=== PATIENT | female | born 1965 | race Caucasian/White ===

== ENCOUNTER 2022-12-14 11:22 | Outpatient (CLI) | payer OTHER, SELFPAY ==
--- NOTE | ~2022-12-14 | XR_ITS ---
Clinical Indication: Rheumatoid arthritis PA and lateral views of the chest: Comparison: 02/11/2019 Findings: Questionable minimal interstitial prominence the lungs. Stable calcified left upper lobe gr anuloma.. Cardiomediastinal silhouette is within normal limits. Bones and soft tissues are unremarka ble. Impression: Questionable minimal interstitial prominence. Correlate for minimal interstitial edema or other inter stitial disease. Reviewed, dictated and finalized at location . Impression: Questionable minimal interstitial prominence. Correlate for minimal interstitia l edema or other interstitial disease.
[2022-12-14 18:32] LABS: Hematocrit 36.4 % (37.0-47.0); Hemoglobin 11.8 g/dL (12.0-15.0); Mean Corpuscular HGB Conc 32.4 g/dl (32-36); Mean Corpuscular Hemoglobin 31.9 pg (26-34); Mean Corpuscular Volume 98.4 fl (80-100); Mean Platelet Volume 9.8 fl (7.4-10.4); Platelet Count Result 526 k/mm3 (150-375); Red Cell Distribution Width 13.2 % (11.5-14.5); White Blood Count 10.5 K/mm3 (4.5-10.0)
[2022-12-14 19:06] LABS: Iron 50 ug/dL (37-170)
[2022-12-14 19:15] LABS: Percent Iron Saturation 18 % (20-50)
[2022-12-14 19:29] LABS: Creatinine Urine 58.1 mg/dL
[2022-12-14 19:31] LABS: Alanine Aminotransferase 13 U/L (6-35); Albumin Level 4.1 g/dL (3.5-5.1); Alkaline Phosphatase 108 U/L (38-126); Anion Gap 11 mmol/L (8-16); Aspartate Amino Transferase 70 U/L (14-36); Bilirubin,Total 0.3 mg/dL (0.2-1.3); Blood Urea Nitrogen 13 mg/dL (7-17); CRP 1.6 mg/dL (<1.0); Calcium 9.8 mg/dL (8.4-10.2); Carbon Dioxide 17 mmol/L (22-30); Chloride 112 mmol/L (98-107); Cholesterol 201 mg/dL (0-200); Erythrocyte Sedimentation Rate 67 mm/hr (0-20); Estimated Glomerular Filt Rate 51; Glucose 219 mg/dL (65-110); HDL Direct 45 mg/dL; Sodium 140 mmol/L (137-145); Triglycerides 181 mg/dL (<150)
[2022-12-14 19:37] LABS: MALB Creatinine Ratio 11.4 mg/g (0-30); Microalbumin Urine Random 6.6 mg/L (0-16.7)
[2022-12-14 19:40] LABS: LDL Cholesterol Direct 93 mg/dL
[2022-12-14 20:20] LABS: Hemoglobin A1C 8.1 % (<5.7)
[2022-12-17 14:24] LABS: ANA Cascade Screen Negative (Negative)
== END 2022-12-14 11:23 | disposition home or self-care (01) ==
LOC: ANHBWCLAB 11:23
PROVIDERS: PCP Nurse Practitioner Adult Health; Visit Provider Nurse Practitioner Adult Health
DX: M06.9 Rheumatoid arthritis, unspecified (principal); E11.9 Type 2 diabetes mellitus without complications; Z13.29 Encounter for screening for other suspected endocrine disorder; R91.8 Other nonspecific abnormal finding of lung field
CPT/HCPCS: 36415; 71046; 80053; 80061; 82043; 82728; 83036; 83540; 83550; 84443; 85027; 85652; 86038; 86140

== ENCOUNTER 2022-12-26 17:19 | Outpatient (CLI) | payer OTHER, SELFPAY ==
--- NOTE | ~2022-12-26 | XR_ITS ---
Left foot Technique: AP, oblique, and lateral views were obtained. Clinical History: Pain Findings: No acute fracture or dislocation is seen. Osseous alignment is anatomic. Joint spaces are p reserved without erosive or degenerative change. Questionable minimal erosions at the fifth metatarsa l head. There is prominent soft tissue swelling at the fifth metatarsophalangeal joint region. Impression: Prominent soft tissue swelling the fifth metatarsophalangeal joint region. Questionable minimal tiny erosion at the fifth metatarsal head. Consider bunionette or possibly gouty arthritis. Reviewed, dictated and finalized at location M. Impression: Prominent soft tissue swelling the fifth metatarsophalangeal joint region. Ques tionable minimal tiny erosion at the fifth metatarsal head. Consider bunionette or possibly gouty arthritis.
== END 2022-12-26 17:20 | disposition home or self-care (01) ==
LOC: ANHLAB 17:20
PROVIDERS: PCP Nurse Practitioner Adult Health; Visit Provider Nurse Practitioner Adult Health
DX: M79.672 Pain in left foot (principal); M79.89 Other specified soft tissue disorders
CPT/HCPCS: 73630

== ENCOUNTER 2023-01-11 11:47 | Outpatient (CLI) | payer OTHER, SELFPAY ==
--- NOTE | ~2023-01-11 | XR_ITS ---
XR shoulder RT min 2V 01/11/2023 12:03 Indication: Right shoulder pain after recent fall Procedure: 4 views right shoulder Comparison: No prior studies for comparison. Findings: There is mild polyarticular osteoarthritis of the right acromioclavicular and glenohumeral joints. There is healed right clavicular fracture. Osteopenia. Surrounding osseous structures are unr emarkable. No soft tissue abnormalities. Impression: 1: Mild polyarticular osteoarthritis of the right shoulder. Reviewed, dictated and finalized at location B. Impression: 1: Mild polyarticular osteoarthritis of the right shoulder.
--- NOTE | ~2023-01-11 | XR_ITS ---
EXAMINATION:XR_[id number]_CR DATE: 01/11/2023 12:03 INDICATION: Neck pain TECHNIQUE: AP, lateral, lateral swimmers and odontoid views of the cervical spine are provided. COMPARISON: None FINDINGS: Alignment is normal. The odontoid process is intact. No fracture is identified. Vertebral b ailyn heights and disk spaces are normal. Prevertebral soft tissues are normal. There is mild facet paddy nt osteoarthritis. IMPRESSION: 1. Mild cervical spondylosis without acute findings. Reviewed, dictated and finalized at location F.
== END 2023-01-11 11:48 | disposition home or self-care (01) ==
PROVIDERS: PCP Family Medicine; Visit Provider Nurse Practitioner Adult Health
DX: M47.892 Other spondylosis, cervical region (principal); M19.011 Primary osteoarthritis, right shoulder
CPT/HCPCS: 72040; 73030

== ENCOUNTER 2023-03-21 14:28 | Outpatient (CLI) | payer OTHER, SELFPAY ==
--- NOTE | ~2023-03-21 | XR_ITS ---
Right Forearm AP and lateral views of the right forearm were performed. Clinical History: Swelling, mass Findings: No acute fracture or dislocation is seen. Osseous alignment in anatomic. Joint spaces are preserved. Soft tissues are unremarkable. Impression: Unremarkable exam. Reviewed, dictated and finalized at location M. LLURGICAL INSPECTOR Impression: Unremarkable exam.
--- NOTE | ~2023-03-21 | XR_ITS ---
Left elbow Technique: AP, oblique, and lateral views were obtained. Clinical History: Rheumatoid arthritis Findings: No acute fracture or dislocation is seen. Osseous alignment is anatomic. Joint spaces are p reserved. Probable small joint effusion present. Impression: No osseous abnormality evident. Probable small joint effusion, nonspecific in the absence of trauma. Reviewed, dictated and finalized at [facility]. TRIC METER TESTER Impression: No osseous abnormality evident. Probable small joint effusion, nonspecific in the absence of trauma.
--- NOTE | ~2023-03-21 | XR_ITS ---
XR forearm LT 2V 03/21/2023 15:27 Indication: Rheumatoid arthritis Procedure: 2 views left forearm Comparison: No prior studies for comparison. Findings: Osteopenia. There is anatomic alignment. There is older ulnar styloid avulsion fracture. Th ere is moderate polyarticular osteoarthritis of the carpal bones. No acute fracture or traumatic william lignment. No erosive changes. Impression: 1: Moderate polyarticular osteoarthritis of the left wrist. Reviewed, dictated and finalized at location B. WORKER SUPERVISOR Impression: 1: Moderate polyarticular osteoarthritis of the left wrist.
--- NOTE | ~2023-03-21 | XR_ITS ---
AP and lateral views of the bilateral hips Clinical history: Arthritis Findings: No acute fracture or dislocation is seen. Osseous alignment is anatomic. Bilateral hip and SI joint spaces are preserved. Soft tissues are unremarkable. Impression: No significant abnormality is seen. Reviewed, dictated and finalized at [facility]. HEMICAL ENGINEER Impression: No significant abnormality is seen.
--- NOTE | ~2023-03-21 | XR_ITS ---
Right foot Technique: AP and lateral weightbearing views were obtained. Clinical History: Rheumatoid arthritis Findings: No acute fracture or dislocation is seen. Suspected erosions at the third, fourth, and fift h metatarsal heads.. Joint spaces are preserved without erosive or degenerative change. There is soft tissue swelling about the fifth metatarsal head. Impression: Suspected erosions at the third, fourth, and fifth metatarsal heads, with overlying soft tissue swell ing, particularly at the fifth metatarsal head region. Findings suggest inflammatory arthropathy. Reviewed, dictated and finalized at location M. R TUBE MACHINE OPERATOR Impression: Suspected erosions at the third, fourth, and fifth metatarsal heads, with overl timothy soft tissue swelling, particularly at the fifth metatarsal head region. Fi ndings suggest inflammatory arthropathy.
--- NOTE | ~2023-03-21 | XR_ITS ---
Lumbosacral Spine: AP and lateral views Clinical History: Arthritis Findings: The normal lordotic curve is maintained. The vertebral bodies and posterior elements are i ntact. The intervertebral disc spaces are preserved. Mild facet arthropathy present. The sacroiliac joints are normally outlined. Impression: Mild facet arthropathy. Reviewed, dictated and finalized at location . LE PARAMEDICAL EXAMINER Impression: Mild facet arthropathy.
--- NOTE | ~2023-03-21 | XR_ITS ---
Left foot Technique: AP and lateral weightbearing views were obtained. Clinical History: Rheumatoid arthritis Findings: No acute fracture or dislocation is seen. Probable erosions at the third, fourth, fifth met atarsal heads, with soft tissue swelling about the fifth metatarsal head. Joint spaces are preserved. Impression: Probable erosions at the third, fourth, and fifth metatarsal heads, with soft tissue swelling at the fifth metatarsal head region. Findings are compatible with inflammatory arthropathy. Reviewed, dictated and finalized at location . CTOR OF SECURITIES AND REAL ESTATE Impression: Probable erosions at the third, fourth, and fifth metatarsal heads, with soft t issue swelling at the fifth metatarsal head region. Findings are compatible wit h inflammatory arthropathy.
--- NOTE | ~2023-03-21 | XR_ITS ---
Right elbow Technique: AP, oblique, and lateral views were obtained. Clinical History: Rheumatoid arthritis, swelling Findings: No acute fracture or dislocation is seen. Osseous alignment is anatomic. Joint spaces are p reserved. There is no displacement of the fat pads, and soft tissues are unremarkable. Impression: Unremarkable radiographs. Reviewed, dictated and finalized at [facility]. REPAIRER Impression: Unremarkable radiographs.
--- NOTE | ~2023-03-21 | XR_ITS ---
XR hand BI arthritis min 3V 03/21/2023 15:27 Indication: Rheumatoid arthritis. Procedure: 4 views each hand Comparison: No prior studies for comparison. Findings: There is polyarticular osteoarthritis of the wrist and hands primarily involving the carpal phalangeal joints of both hands and to a lesser degree the interphalangeal joints. There is moderate osteoarthritis of the right triscaphe and to a lesser degree carpal metacarpal joint as well as the left triscaphe joints. Osteopenia. There are erosive changes involving the margin of the left second and third metacarpal heads with associated soft tissue swelling. There are small marginal erosions of the left second and third middle phalanges proximally. There is marginal erosion along the right sec ond, fourth and fifth metacarpal heads as well as at multiple interphalangeal joints. Impression: 1: Polyarticular erosions and advanced polyarticular degenerative change, compatible with known rheum atoid arthritis. 2: Osteopenia. Reviewed, dictated and finalized at location B. ETING PROJECT SPECIALIST Impression: 1: Polyarticular erosions and advanced polyarticular degenerative change, tania tible with known rheumatoid arthritis. 2: Osteopenia.
[2023-03-21 15:11] LABS: Hematocrit 35.6 % (37.0-47.0); Hemoglobin 11.2 g/dL (12.0-15.0); Mean Corpuscular HGB Conc 31.5 g/dl (32-36); Mean Corpuscular Hemoglobin 29.2 pg (26-34); Platelet Count Result 549 k/mm3 (150-375); Red Blood Count 3.83 M/mm3 (4.2-5.4); Red Cell Distribution Width 14.2 % (11.5-14.5); White Blood Count 11.3 K/mm3 (4.5-10.0)
[2023-03-21 15:33] LABS: Appearance Urine Clear (Clear); Bacteria Urine None Seen /hpf; Bilirubin Urine Negative (Negative); Blood Urine Negative (Negative); Color Urine Yellow (Yellow); Glucose Urine UA Negative (Negative); Ketones Urine Negative (Negative); Leukocyte Esterase Ur Negative LEU/UL (Negative); Need Manual Microscopic Reviewed; Nitrate Urine Negative (Negative); Non Pathogenic Casts 0-2; Protein Urine 1+ mg/dL (Negative); RBC Urine 21-50 /hpf (0-2); Specific Grav Ur 1.014 (1.001-1.035); Squamous Epithelial Cell Urine Occasional /hpf (Few); Urobilinogen Urine 0.2 mg/dL (<2.0); WBC Urine 0-5 /hpf; pH Urine 6.5 (5.0-9.0)
[2023-03-21 15:34] LABS: Add Urine Microscopic? YES
[2023-03-21 15:38] LABS: Erythrocyte Sedimentation Rate 75 mm/hr (0-20)
[2023-03-21 16:09] LABS: Alanine Aminotransferase 14 U/L (6-35); Albumin Level 4.2 g/dL (3.5-5.1); Alkaline Phosphatase 122 U/L (38-126); Anion Gap 12 mmol/L (8-16); Aspartate Amino Transferase 20 U/L (14-36); Bilirubin,Total 0.3 mg/dL (0.2-1.3); Blood Urea Nitrogen 12 mg/dL (7-17); Calcium 9.5 mg/dL (8.4-10.2); Carbon Dioxide 16 mmol/L (22-30); Chloride 109 mmol/L (98-107); Estimated Glomerular Filt Rate 51; Glucose 167 mg/dL (65-110); Sodium 137 mmol/L (137-145); Uric Acid 3.6 mg/dL (2.5-7.5)
[2023-03-21 16:16] LABS: Complement C3 70 mg/dL (88-165)
[2023-03-21 16:23] LABS: Hepatitis B Surface Anti Res Negative; Hepatitis C Virus Antibody Negative (Negative)
[2023-03-21 18:15] LABS: Hepatitis B Surface Antigen Negative (Negative)
[2023-03-21 23:10] LABS: Rheumatoid Factor > 120.0 IU/ML (<12)
[2023-03-25 14:13] LABS: T SPOT NEG CONTROL Passed; T SPOT POS CONTROL Passed
[2023-03-25 14:14] LABS: PNL A Neg Control 3; PNL B Corr Neg Control 2
[2023-03-25 14:15] LABS: T Spot TB Result Negative
[2023-03-27 08:10] LABS: Anti Cyclic Citrullinated Pept >250
[2023-03-27 08:12] LABS: SS-B <1.0
[2023-03-27 08:13] LABS: SS-A <1.0
[2023-03-27 08:14] LABS: SM/RNP Antibody <1.0
[2023-03-27 08:15] LABS: Angiotensin Converting Enzyme 60; SM Antibody <1.0
[2023-03-27 08:16] LABS: Aldolase 3.2
== END 2023-03-21 14:29 | disposition home or self-care (01) ==
PROVIDERS: PCP Nurse Practitioner Adult Health; Visit Provider Internal Medicine
DX: R22.33 Localized swelling, mass and lump, upper limb, bilateral (principal); M19.032 Primary osteoarthritis, left wrist; M85.80 Other specified disorders of bone density and structure, unspecified site; M05.79 Rheumatoid arthritis with rheumatoid factor of multiple sites without organ or systems involvement; M06.041 Rheumatoid arthritis without rheumatoid factor, right hand; M06.042 Rheumatoid arthritis without rheumatoid factor, left hand; J44.9 Chronic obstructive pulmonary disease, unspecified; M47.819 Spondylosis without myelopathy or radiculopathy, site unspecified
CPT/HCPCS: 36415; 72100; 73080; 73090; 73130; 73521; 73620; 80053; 81001; 82085; 82164; 82306; 84550; 85027; 85652; 86140; 86160; 86200; 86225; 86235; 86430; 86481; 86706; 86803; 87340

== ENCOUNTER 2023-03-27 14:53 | Outpatient (CLI) | payer OTHER, SELFPAY ==
[2023-03-27 21:48] LABS: Hemoglobin A1C 7.4 % (<5.7)
== END 2023-03-27 14:54 | disposition home or self-care (01) ==
PROVIDERS: PCP Nurse Practitioner Adult Health; Visit Provider Nurse Practitioner Adult Health
DX: E11.9 Type 2 diabetes mellitus without complications (principal)
CPT/HCPCS: 36415; 83036

== ENCOUNTER 2023-03-30 12:43 | Outpatient (CLI) | payer OTHER, SELFPAY ==
--- NOTE | ~2023-03-30 | CT_ITS ---
EXAMINATION:CT soft tissue neck chest wo DATE: 03/30/2023 13:27 INDICATION: Rheumatoid arthritis with rheumatoid factor. Lung nodules. TECHNIQUE: Computed tomography (CT) of the neck and chest was performed without intravenous contrast. Automated exposure control and iterative reconstruction technique were employed. The dose-length pro duct (DLP) was 973.13 mGy-cm. COMPARISON: None. FINDINGS: CT NECK: There are no pathologically enlarged lymph nodes. There is a 7 mm nodule in the thyroid, lik ary not clinically significant. There is mild cervical spondylosis. CT CHEST: There is mild emphysema. Calcified pulmonary nodules and calcified hilar lymph nodes are co nsistent with old granulomatous disease. There is peripheral septal thickening in the lungs associate d with mild groundglass opacities. There are a few clusters of centrilobular nodules measuring up to 4 mm in the lungs, likely infection. There is mild bronchiectasis in the inferior lungs. No honeycomb ing. The heart size is normal. No pericardial effusion. Partially visualized are low-attenuation mass es in the adrenal glands measuring up to 2.3 cm on the left, consistent with adenomas. There is old h ealed fracture of right clavicle. There is mild thoracic spondylosis. IMPRESSION: 1. Diffuse lung disease, likely a combination of emphysema and mild chronic interstitial lung disease in a pattern of nonspecific interstitial pneumonia (NSIP). 2. Small lung nodules, likely infection. Reviewed, dictated and finalized at location A. ER CORE TESTER IMPRESSION: 1. Diffuse lung disease, likely a combination of emphysema and mild chronic int erstitial lung disease in a pattern of nonspecific interstitial pneumonia (NSIP ). 2. Small lung nodules, likely infection.
== END 2023-03-30 12:44 | disposition home or self-care (01) ==
PROVIDERS: PCP Nurse Practitioner Adult Health; Visit Provider Internal Medicine
DX: J44.9 Chronic obstructive pulmonary disease, unspecified (principal); M05.79 Rheumatoid arthritis with rheumatoid factor of multiple sites without organ or systems involvement; R91.8 Other nonspecific abnormal finding of lung field
CPT/HCPCS: 70490; 71250

== ENCOUNTER 2023-04-26 14:45 | Outpatient (CLI) | payer OTHER, SELFPAY ==
--- NOTE | 2023-04-28 11:55 | WPDPFTINT ---
PFT Procedure Performed PFT Procedure Performed Spirometry with Pre/Post Bronchodilator Plethysmography (Lung Vol) Diffusing Cap (DLCO) Flow Vol Loop PFT Interpretation This is a pulmonary function test with pre and post-bronchodilator spirometry, plethysmography and diffusing capacity.? The test was performed and results interpreted in accordance with the 2019 and 2005 ATS/ERS Task Force guidelines respectively using the Global Lung Function Initiative-2012 reference equations. Patient demonstrated good effort and cooperation. Reproducibility criteria were met. The quality of the pre bronchodilator spirometry maneuver was Grade A and post bronchodilator spirometry maneuver was Grade A. Findings: Spirometry:? The contour the inspiratory and expiratory flow tracing are normal.? The FVC is 3.39 L, 108% predicted.? The pre bronchodilator FEV1 is 2.60 L, 104% predicted.? The pre bronchodilator FEV1:? FVC ratio 77%.? The post bronchodilator FVC is 3.41 L, representing 1% increase.? The post bronchodilator FEV1 is 2.70 L, representing a 4% increase.? The post bronchodilator FEV1:? FVC ratio 79%. Plethysmography:? The total lung capacity is 5.05 L, 103% predicted.? The functional residual capacity is 2.85 L, 103% predicted.? The residual volume is 1.67 L, 89% predicted.? Diffusing capacity:? The diffusing capacity unadjusted for hemoglobin and carboxyhemoglobin is 11.1, 51% predicted.? The diffusing capacity adjusted for alveolar volume is 2.43, 54% predicted. Impression: The spirometry is normal without evidence of an obstructive abnormality. There is no significant improvement after inhaling a single dose of albuterol.? The lung volumes are normal.? The diffusing capacity unadjusted for hemoglobin and carboxyhemoglobin is moderately decreased and remains moderately reduced when adjusted for alveolar volume. There are no prior studies for comparison ??
== END 2023-04-26 14:46 | disposition home or self-care (01) ==
LOC: ANHPFT 14:46
PROVIDERS: PCP Nurse Practitioner Adult Health; Visit Provider Nurse Practitioner Family
DX: J44.9 Chronic obstructive pulmonary disease, unspecified (principal); R06.09 Other forms of dyspnea
CPT/HCPCS: 94060; 94618; 94726; 94729

== ENCOUNTER 2023-06-16 15:51 | Outpatient (CLI) | payer OTHER, SELFPAY ==
[2023-06-16 16:17] LABS: Hematocrit 33.9 % (37.0-47.0); Mean Corpuscular HGB Conc 32.4 g/dl (32-36); Mean Corpuscular Hemoglobin 29.5 pg (26-34); Mean Corpuscular Volume 90.9 fl (80-100); Mean Platelet Volume 9.3 fl (7.4-10.4); Platelet Count Result 411 k/mm3 (150-375); Red Blood Count 3.73 M/mm3 (4.2-5.4); Red Cell Distribution Width 14.7 % (11.5-14.5); White Blood Count 8.5 K/mm3 (4.5-10.0)
[2023-06-16 16:26] LABS: Appearance Urine Clear (Clear); Bacteria Urine None Seen /hpf; Bilirubin Urine Negative (Negative); Blood Urine Negative (Negative); Color Urine Yellow (Yellow); Glucose Urine UA Negative (Negative); Ketones Urine Negative (Negative); Leukocyte Esterase Ur Negative LEU/UL (Negative); Nitrate Urine Negative (Negative); Non Pathogenic Casts 0-2; Protein Urine 2+ mg/dL (Negative); RBC Urine 0-2 /hpf (0-2); Squamous Epithelial Cell Urine None seen /hpf (Few); Urobilinogen Urine 0.2 mg/dL (<2.0); WBC Urine 0-5 /hpf; pH Urine 6.5 (5.0-9.0)
[2023-06-16 16:29] LABS: Alanine Aminotransferase 12 U/L (6-35); Albumin Level 3.9 g/dL (3.5-5.1); Alkaline Phosphatase 118 U/L (38-126); Anion Gap 9 mmol/L (8-16); Aspartate Amino Transferase 19 U/L (14-36); Bilirubin,Total 0.3 mg/dL (0.2-1.3); Blood Urea Nitrogen 14 mg/dL (7-17); CRP < 0.5 mg/dL (<1.0); Calcium 9.2 mg/dL (8.4-10.2); Carbon Dioxide 18 mmol/L (22-30); Chloride 109 mmol/L (98-107); Estimated Glomerular Filt Rate 51; Glucose 164 mg/dL (65-110); Potassium 4.1 mmol/L (3.4-5.0); Sodium 136 mmol/L (137-145)
[2023-06-16 16:43] LABS: Add Urine Microscopic? YES
[2023-06-16 17:35] LABS: Erythrocyte Sedimentation Rate 130 mm/hr (0-20)
== END 2023-06-16 15:52 | disposition home or self-care (01) ==
LOC: ANHLAB 15:53
PROVIDERS: PCP Nurse Practitioner Adult Health; Visit Provider Internal Medicine
DX: M05.79 Rheumatoid arthritis with rheumatoid factor of multiple sites without organ or systems involvement (principal); M19.90 Unspecified osteoarthritis, unspecified site; Z72.0 Tobacco use; R91.8 Other nonspecific abnormal finding of lung field
CPT/HCPCS: 36415; 80053; 81001; 85027; 85652; 86140

== ENCOUNTER 2023-06-19 13:46 | Outpatient (CLI) | payer OTHER, SELFPAY ==
--- NOTE | ~2023-06-19 | DEXA_ITS ---
Bone Density Report Name: RITA DANIELS Age: 57 Sex: Female Ethnicity: White Date of : 1965 Indication: postmenopausal; screening for osteoporosis; height loss; asthma or emphysema; rheumatoid arthritis; Referring Provider: SCOTT LAURA Study: Bone densitometry was performed. Exam Date: June 19, 2023 Accession number: [id number] Bone Density: Region BMD T-score Z-score Classification AP Spine(L1-L4) 0.738 -2.8 -1.6 Osteoporosis Femoral Neck (Left) 0.451 -3.6 -2.4 Osteoporosis Total Hip (Left) 0.598 -2.8 -2.0 Osteoporosis Femoral Neck (Right) 0.361 -4.4 -3.2 Osteoporosis Total Hip (Right) 0.521 -3.5 -2.6 Osteoporosis Total Hip Mean 0.559 -3.2 -2.3 Osteoporosis World Health Organization criteria for BMD impression classify patients as: Normal (T-score at or above -1.0), Osteopenia (T-score between -1.0 and -2.5), or Osteoporosis (T-score at or below -2.5). 10-year Fracture Risk: FRAX not reported because: Some T-score for Spine Total or Hip Total or Femoral Neck at or below -2.5 Clinical Information Provided by Patient: Smokes Has rheumatoid arthritis Has used the following medications: Vitamin D Has the following medical conditions: Asthma or Emphysema Patient maximum height was 64 No regular weight bearing exercise Drinks caffeinated beverages Onset of menses at age 13 Number of children 2 Impression: The patient has osteoporosis, based on the Right Femoral Neck T-score. The patient has risk factors, including: smoking. Discussion: HIGH RISK OF FRACTURE. BONE DENSITY IS UNDESIRABLY LOW AT ONE OR MORE SKELETAL SITES, CONSISTENT WITH OSTEOPOROSIS. ALSO, BONE DENSITY IS LOWER THAN EXPECTED FOR AGE AND SEX AT ONE OR MORE SKELETAL SITES; RECOMMEND A DILIGENT SEARCH FOR SECONDARY CAUSES OF BONE LOSS. This patient's lowest T-score meets the World Health Organization's (WHO) criteria for osteoporosis at one or more sites (T-score -2.5 or below). In untreated patients, the risk of osteoporotic fracture increases approximately two-fold for each 1.0 SD decrease in T-score. Low bone density is not the only risk factor for fracture; also consider factors such as patient's age, frailty or poor health, risk of falling, risk of injury, previous osteoporotic fracture, family history of osteoporosis, cigarette smoking, low body weight, etc. Not everyone with low bone mineral density has osteoporosis; osteomalacia and other metabolic bone disorders should also be considered. Patients who have osteoporosis should be evaluated for specific diseases and conditions (secondary causes) that may cause or contribute to bone loss. The [employer] Association of Clinical Endocrinologists (AACE) and National Osteoporosis Foundation (NOF) recommend pharmacologic intervention for all postmenopausal women whose T-sc
== END 2023-06-19 13:47 | disposition home or self-care (01) ==
LOC: ANHIMG 13:47
PROVIDERS: PCP Nurse Practitioner Adult Health; Visit Provider Nurse Practitioner Adult Health
DX: Z78.0 Asymptomatic menopausal state (principal); M81.0 Age-related osteoporosis without current pathological fracture
CPT/HCPCS: 77080

== ENCOUNTER 2023-08-09 13:47 | Emergency (ER) | payer OTHER, SELFPAY ==
[2023-08-09 13:52] VITALS: BP 123/68; PULSE 96; RESP 20; TEMP 36.4; O2SAT 100
--- NOTE | 2023-08-09 15:47 | ED.GENADULT ---
HPI - General Adult General Chief complaint: Wound/Laceration Stated complaint: wound Time Seen by Provider: 08/09/23 15:31 Source: patient Mode of arrival: ambulatory Limitations: no limitations History of Present Illness HPI narrative: This is a 57-year-old female who presents to the ED with chief complaint of painful callus to the right thumb. 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 She reports that she has had paronychia is in this thumb in the past and feels like she may have the same today. She notices some purulent type swelling to the thumb but no drainage. She has been trying to squeeze the thumb but not able to drain anything out. Denies fevers, chills, numbness, weakness. Related Data Allergies Allergy/AdvReac Type Severity Reaction Status Date / Time pseudoephedrine Allergy Unknown Unknown Verified 08/01/23 14:34 Review of Systems Review of Systems: All systems as dictated in HPI [facility] Past Medical History Medical History Abnormal chest xray Colon cancer screening Diabetes mellitus type 2 in nonobese Gallstone pancreatitis Generalized osteoarthritis of multiple sites Hidradenitis suppurativa NSIP (nonspecific interstitial pneumonia) Rheumatoid arthritis Rheumatoid arthritis, seropositive, multiple sites Smoker Subcutaneous nodule of both forearms Subcutaneous nodule of left forearm Surgical History Surgical History No pertinent past surgical history Family History Family History Grandparent Diabetes mellitus Family history of cardiovascular disease Carcinoma of colon Mother Diabetes mellitus Cerebrovascular accident Family history of kidney disease Hypertension Family history of diabetes mellitus in first degree relative Father Patient's father is in good health Family history of arthritis Social History Social History Smoking packs per day: 1 Smoking cigarettes per day: 20.0 Years smoked: 43 Smoking pack-years: 43.00 Smoking status: Current every day smoker Tobacco type: cigarettes Second hand tobacco smoke exposure: Yes Additional smoking assessment comments: Currently smoking 0.5ppd. Alcohol intake: former Substance use: never Lack of Transportation: YES Lack of Food: Sometimes True Current Housing: I Have Housing Concerned About Future Housing: No Difficulty Paying Gas/Electric Bills: Decline to Answer Difficulty Paying for Meds: No Currently Unemployed: Decline to Answer Education: High School Diploma/GED Difficulty w/ Childcare or Family Care: No Living arrangements: with family Exam Narrative: GENERAL: Well-appearing, well-nourished, and in no acute distress. HEAD: Normocephalic, atraumatic. EYES: PERRLA and EOMI. ENT: Nares clear, no rhinorrhea or epistaxis. Mucous membranes moist. Oropharynx without tonsillar hypertrophy exudate or other lesions. NECK: Supple. No adenopathy or masses. CHEST: No respiratory distress. Clear to auscultation. No wheezes rales or rhonchi HEART: Regular rate and rhythm. No murmur heard. Normal peripheral pulses. ABDOMEN: Soft, nontender, nondistended, normal active bowel sounds. MSK: Right hand: Mild swelling and erythema to the radial side of the right thumb distally. Tender to palpation. Left hand: Benign SKIN: Warm, dry, no rash. NEURO: Alert and oriented x3. No focal deficits. PSYCH: Normal mood and affect. Course Vital Signs Vital signs: Vital Signs Temperature 97.6 F 08/09/23 13:52 Pulse Rate 96 08/09/23 13:52 Respiratory Rate 20 08/09/23 13:52 Blood Pressure 123/68 08/09/23 13:52 Pulse Oximetry 100 08/09/23 13:52 Temperature 97.6 F 08/09/23 13:52 Pulse Rate 96 08/09/23 13:5
== END 2023-08-09 16:20 | disposition home or self-care (01) ==
PROVIDERS: Emergency Provider Physician Assistant; PCP Nurse Practitioner Adult Health
DX: L03.011 Cellulitis of right finger (principal); E11.9 Type 2 diabetes mellitus without complications; M19.90 Unspecified osteoarthritis, unspecified site; M05.9 Rheumatoid arthritis with rheumatoid factor, unspecified; F17.210 Nicotine dependence, cigarettes, uncomplicated; Z87.01 Personal history of pneumonia (recurrent); Z79.84 Long term (current) use of oral hypoglycemic drugs
CPT/HCPCS: 99283

== ENCOUNTER 2023-09-26 12:05 | Outpatient (CLI) | payer OTHER, SELFPAY ==
[2023-09-26 12:46] LABS: Alanine Aminotransferase 10 U/L (6-35); Albumin Level 3.6 g/dL (3.5-5.1); Alkaline Phosphatase 130 U/L (38-126); Anion Gap 7 mmol/L (4-12); Aspartate Amino Transferase 19 U/L (14-36); Bilirubin,Total 0.3 mg/dL (0.2-1.3); Blood Urea Nitrogen 10 mg/dL (7-17); Calcium 8.8 mg/dL (8.4-10.2); Carbon Dioxide 19 mmol/L (22-30); Chloride 111 mmol/L (98-107); Estimated Glomerular Filt Rate 42; Glucose 171 mg/dL (65-110); Potassium 4.1 mmol/L (3.4-5.0); Sodium 137 mmol/L (137-145)
[2023-09-26 13:16] LABS: Cortisol Baseline 8.79 ug/dL
[2023-09-26 14:26] LABS: Free T4 Free Thyroxine 1.26 ng/mL (0.78-2.19); Vitamin D 25 Hydroxy 40.1 ng/mL
[2023-09-26 15:18] LABS: MALB Creatinine Ratio < 54.5 mg/g (0-30); Microalbumin Urine Random < 6.0 mg/L (0-16.7)
[2023-09-28 01:24] LABS: Protein, Total 6.4 g/dL (6.1-8.1)
[2023-09-28 13:13] LABS: Albumin 3.5 g/dL (3.8-4.8); Alpha 1 Globulin 0.4 g/dL (0.2-0.3); Alpha 2 Globulin 0.8 g/dL (0.5-0.9); Beta 1 Globulin 0.5 g/dL (0.4-0.6); Gamma Globulin 0.8 g/dL (0.8-1.7)
[2023-09-29 12:13] LABS: C-Peptide 3.81 ng/mL (0.80-3.85)
[2023-10-01 15:04] LABS: Metanephrine, Free <25 pg/mL (<=57); Normetanephrine, Free 71 pg/mL (<=148); Total, Free (MN + NMN) 71 pg/mL (<=205)
[2023-10-07 19:38] LABS: Glutamic acid decarboxylase AA <5 IU/mL (<5)
[2023-10-12 12:23] LABS: PRA 0.34 ng/mL/h (0.25-5.82)
[2023-10-14 21:19] LABS: Catecholamines, Total 307 pg/mL
== END 2023-09-26 12:06 | disposition home or self-care (01) ==
LOC: ANHLAB 12:06
PROVIDERS: PCP Nurse Practitioner Adult Health; Visit Provider Internal Medicine
DX: E04.1 Nontoxic single thyroid nodule (principal); M81.0 Age-related osteoporosis without current pathological fracture; E27.8 Other specified disorders of adrenal gland
CPT/HCPCS: 36415; 80053; 82043; 82088; 82306; 82384; 82533; 83835; 84155; 84165; 84244; 84439; 84443; 84681; 86341

== ENCOUNTER 2023-10-05 14:09 | Outpatient (CLI) | payer OTHER, SELFPAY ==
--- NOTE | ~2023-10-05 | US_ITS ---
EXAMINATION: US thyroid DATE: 10/05/2023 15:05 INDICATION: Thyroid nodule TECHNIQUE: Multiple ultrasound images of the thyroid were obtained. COMPARISON: None. FINDINGS: The right thyroid lobe measures 4.6 x 1.4 x 1.5 cm. The left thyroid lobe measures 4.1 x 1.4 x 1.4 c m. The thyroid isthmus measures 2 mm. There is a 4 mm solid hypoechoic nodule which is wider than kimber l with smooth margins and with internal echogenic focus (TI-RADS 5, highly suspicious , FNA if >=1.0 cm, annual followup is >0.5 cm). There is normal echotexture, echogenicity and vascular flow througho ut the thyroid gland. There is a 2.8 x 0.6 x 2.5 cm ovoid lipoma in the subcutaneous tissues anterior to the right thyroid lobe which is isoechoic with identical echotexture and internal linear septatio n architecture as the surrounding subcutaneous fat and with corresponding fat attenuation on neck CT dated 03/30/2023. IMPRESSION: 1. 5 mm BI-RADS 5 right thyroid nodule for which annual ultrasound would be recommended. 2. 2.8 cm subcutaneous lipoma anterior to the right thyroid lobe. Reviewed, dictated and finalized at location A. IMPRESSION: 1. 5 mm BI-RADS 5 right thyroid nodule for which annual ultrasound would be rec ommended. 2. 2.8 cm subcutaneous lipoma anterior to the right thyroid lobe.
--- NOTE | ~2023-10-05 | CT_ITS ---
EXAMINATION: CT abdomen pelvis wo con DATE: 10/05/2023 14:30 INDICATION: Adrenal mass. TECHNIQUE: Computed tomography (CT) of the abdomen and pelvis was performed without intravenous contr ast. Automated exposure control and iterative reconstruction technique were employed. The dose-length product was 242.46 mGy-cm. COMPARISON: Chest CT 03/30/2023, 10/13/2015 FINDINGS: The visualized portions of the lung bases demonstrate mild atelectasis and mild chronic ranjeet g disease. Calcified right lung nodules are consistent with old granulomatous disease. No pleural eff usion. The heart size is normal. No pericardial effusion. The liver, gallbladder, spleen, and pancrea s are normal. There is a 17 mm mass in right adrenal gland with attenuation of -11 HU, stable from , consistent with an adenoma. There is a 28 mm mass in left adrenal gland with attenuation of -1 1 HU, stable from 10/13/15, consistent with an an adenoma. The kidneys are normal. There are no dilate d loops of bowel. The appendix is normal. There are no pathologically enlarged lymph nodes. There is no free intraperitoneal fluid. There is mild thoracic and lumbar spondylosis. IMPRESSION: 1. Chronic bilateral adrenal adenomas. Reviewed, dictated and finalized at location A.
== END 2023-10-05 14:10 | disposition home or self-care (01) ==
LOC: ANHIMG 14:11
PROVIDERS: PCP Nurse Practitioner Adult Health; Visit Provider Internal Medicine
DX: E27.8 Other specified disorders of adrenal gland (principal); E04.1 Nontoxic single thyroid nodule; M81.0 Age-related osteoporosis without current pathological fracture
CPT/HCPCS: 74176; 76536